=== PATIENT | male | born 1960 | race Caucasian/White ===

== ENCOUNTER → 2021-04-18 08:18 | Outpatient (CLI) | payer OTHER, SELFPAY ==
--- NOTE | ~2021-04-18 | MM_ITS ---
EXAMINATION: MM diagnostic mammo unilat RT HISTORY: Subareolar right breast mass TECHNIQUE: Craniocaudal and mediolateral oblique images of the right breast and mediolateral oblique images of the left breast were obtained using full field digital mammography. COMPARISON: None BREAST PARENCHYMAL COMPOSITION: The breasts are almost entirely fatty. FINDINGS: There is flame-shaped subareolar focal asymmetry of the right breast compared to the left. No discrete mass or suspicious calcification are identified. IMPRESSION: 1. Findings consistent with asymmetric gynecomastia on the right breast. Further evaluation at this t bryanna should be based on clinical assessment. Continued follow-up physical examination is recommended. BI-RADS Category 2: Benign finding(s). Reviewed, dictated and finalized at location A. IMPRESSION: 1. Findings consistent with asymmetric gynecomastia on the right breast. Furthe r evaluation at this time should be based on clinical assessment. Continued fol low-up physical examination is recommended. BI-RADS Category 2: Benign finding(s).
== END ==
PROVIDERS: PCP Family Medicine; Visit Provider Physician Assistant
DX: N63.10 Unspecified lump in the right breast, unspecified quadrant (principal)
CPT/HCPCS: 77065

== ENCOUNTER 2024-09-30 13:05 | Emergency (ER) | payer OTHER, SELFPAY ==
--- NOTE | 2024-09-30 13:07 | ED_ITS ---
HPI - URI/Sore Throat General Chief Complaint: Upper Respiratory Infection Stated Complaint: Vomiting/Sinus Time Seen by Provider: 09/30/24 13:06 Source: patient Mode of arrival: ambulatory Limitations: no limitations History of Present Illness HPI Narrative: Jevon is a 64-year-old male patient presenting to the clinic today with complaints sinus congestion, productive cough, abdominal cramping, nausea, vomiting, and diarrhea times 3-4 days. He reports no known fevers, chills, body aches. Has been taking Tylenol and Robitussin DM for symptoms. Denies any chest pain or shortness of breath. He is former smoker. No blood in his stool. MD elicited complaint: sore throat and nasal congestion Related Data Home Medications ?Medication ?Instructions ?Recorded ?Confirmed ?Last Taken ?Type omeprazole 20 mg capsule,delayed 20 mg PO DAILY 06/10/21 08/14/23 Unknown History release Allergies Allergy/AdvReac Type Severity Reaction Status Date / Time No Known Allergies Allergy Unknown Verified 09/30/24 13:11 Review of Systems Review of Systems: Pertinent positives per HPI. Patient denies any fever, chills, rash, headache, visual changes, dizziness,shortness of breath, chest pain, palpitations, diarrhea, constipation, or any urinary issues. PMFSH Surgical History Surgical History History of colostomy (~2007) Family History Family History Grandparent Diabetes mellitus Mother Diabetes mellitus Family history of lung cancer Family history of elevated blood lipids Father Patient's father is , Onset Age: 35 Social History Social History Social History: Caffeine-1/2 cup coffee Smoking status: Former smoker (quit in september 2010) Alcohol intake: current Alcohol use details: daily Substance use: current Comments At the time of my signature, I reviewed and agree with the nursing past medical, surgical, social, and family history. There is no relevant family history pertinent to the patient complaint. Exam Narrative: General: Well-developed, well nourished, in no apparent distress Head: Normocephalic, atraumatic Eyes: Pupils equally round and reactive to light bilaterally, EOM intact, sclera and conjunctive clear, no discharge, lids normal Ears: TMs intact and clear, ear canals clear, no drainage, grossly hearing normal. Nose: Nares patent, no discharge, no inflammation, no sinus tenderness. Mouth: Oral pharynx without lesions or masses, good dentition, MMM. Neck: Supple, trachea midline, no enlargement of anterior or posterior cervical nodes, no thyroid masses or goiter palpable. Cardio: Regular rate and rhythm, s1 and s2 normal, no murmur appreciated. Resp: Expiratory wheeze in the right upper posterior lobe and the left lower and upper lobe, no rhonchi, rales, or rubs Course Course Emergency Course: Portions of this record may have been created with voice recognition software. Level of Care: Express Care Visit Vital Signs Vital signs: Vital Signs Temperature 36.2 C L 09/30/24 13:15 Pulse Rate 101 H 09/30/24 13:15 Respiratory Rate 16 09/30/24 13:15 Blood Pressure 153/86 H 09/30/24 13:15 Pulse Oximetry 95 09/30/24 13:15 Oxygen Delivery Room Air 09/30/24 13:15 Temperature 36.2 C L 09/30/24 13:15 Pulse Rate 101 H 09/30/24 13:15 Respiratory Rate 16 09/30/24 13:15 Blood Pressure 153/86 H 09/30/24 13:15 Pulse Oximetry 95 09/30/24 13:15 Oxygen Delivery Room Air 09/30/24 13:15 Vital signs reviewed MDM - URI/Sore Throat MDM Narrative Medical decision making narrative: At the time of visit patient is resting comfortably on the exam table. Patient appears to be nontoxic. Labs: COVID and influenza testing was performed. All testing was negative. Plan: I suspect patient has bronchitis with gastroenteritis. Prescription for prednisone, albuterol inhaler, Levsin, and Zofran was sent to the pharmacy. Supportive measures were discussed with the patient and they voiced understanding discharge instructions and agrees to treatment plan. Return precautions reviewed Differential Diagnosis Differential diagnosis: Likely upper respiratory infection, otitis media, sinusitis, viral infection, bronchitis, influenza, pharyngitis and other (COVID) Lab Data Labs: Lab Results 09/30/24 Range/Units 13:19 POC Influenza A Ag Negative (Negative) POC Influenza B Ag Negative (Negative) POC SARS CoV-2 Ag Negative (Negative) Discharge Plan Discharge Clinical Impression: Bronchitis, Gastroenteritis Patient Disposition: Home, Self-Care Condition: Stable Instructions: Antibiotic Form Additional Instructions: Take prescription medications only as prescribed albuterol inhaler, prednisone, Levsin, and Zofran Increase fluids and stay well hydrated Tylenol/motrin for pain/fever Flonase and OTC antihistamines as directed Vicks vapor rub to open sinuses Sinus rinses for congestion Cepacol spray, cough drops, throat lozenges, warm tea with honey/lemon, gargle salt water to soothe throat BRAT diet for diarrhea Clear liquids x 24 hours then advance as tolerated for nausea/vomiting Go to the ED if you develop a worsening in your condition- high fever not controlled by Tylenol or Motrin, dehydration, weakness, lethargy, shortness of breath, or chest pain. Follow up with your PCP in 3-5 days if symptoms persist. Patient Language: Cameroonian Prescriptions: New hyoscyamine sulfate [Levsin] 0.125 mg tablet 0.125 mg PO QID PRN (Reason: dyspepsia) 3 Days Qty: 12 0RF ondansetron 4 mg tablet,disintegrating 4 mg PO Q6H PRN (Reason: nausea and vomiting) 3 Days Qty: 12 0RF prednisone 20 mg tablet 40 mg PO DAILY 5 Days Qty: 10 0RF albuterol sulfate 90 mcg/actuation HFA aerosol inhaler 2 puff inhalation Q4-6H PRN (Reason: shortness of breath or wheezing) 30 Days Qty: 8.5 0RF No Action omeprazole 20 mg capsule,delayed release(DR/EC) 20 mg PO DAILY atorvastatin 40 mg tablet 40 mg PO DAILY Qty: 90 0RF Rx Instructions: Needs appointment for further refills Follow-up/Referrals: Bebeto Elder MD [Primary Care Provider] - Stand Alone Forms: Work/School Release IP Time of Disposition: 13:41 Quality NIHSS Nursing Documentation ED NIHSS nursing documentation: reviewed/agree
[2024-09-30 13:15] VITALS: BP 153/86; PULSE 101; RESP 16; TEMP 36.2; O2SAT 95
[2024-09-30 13:39] LABS: EDCOVIDSCREEN Negative (Negative); EDINFLUASCREEN Negative (Negative); EDINFLUBSCREEN Negative (Negative)
== END 2024-09-30 13:45 | disposition home or self-care (01) ==
PROVIDERS: Emergency Provider Nurse Practitioner Family; PCP Emergency Medicine
DX: J40 Bronchitis, not specified as acute or chronic (principal); K52.9 Noninfective gastroenteritis and colitis, unspecified; Z20.822 Contact with and (suspected) exposure to COVID-19; Z87.891 Personal history of nicotine dependence
CPT/HCPCS: 87426; 87804; 99213; G0463

== ENCOUNTER 2024-12-06 17:38 | Emergency (ER) | payer MEDICARE, OTHER, SELFPAY ==
--- NOTE | ~2024-12-06 | XR_ITS ---
EXAMINATION: XR chest 2V Exam Date/Time: 12/06/2024 18:04 CDT HISTORY: prod cough x 3 weeks past smoker smokes pot Comparison: 05/05/2008. RESULT: Lines, tubes, and devices: Cholecystectomy clips. Lungs and pleura: Clear. Cardiomediastinal silhouette: Stable. Other: No acute osseous or upper abdominal finding. IMPRESSION: No acute cardiopulmonary process. Reviewed, dictated and finalized at location K.
[2024-12-06 17:48] VITALS: BP 179/92; PULSE 89; RESP 16; TEMP 36.9; O2SAT 97
--- NOTE | 2024-12-06 18:02 | ED_ITS ---
HPI - URI/Sore Throat General Chief Complaint: Upper Respiratory Infection Stated Complaint: cough,REICH,chest congestion Time Seen by Provider: 12/06/24 17:55 Source: patient and RN notes reviewed Mode of arrival: ambulatory Limitations: no limitations History of Present Illness HPI Narrative: Patient presents today complaining of a one-month history productive cough, wheezing, nasal congestion, postnasal drip, intermittent headache. Denies fever or shortness of breath. He has tried Mucinex and Carlie D with minimal relief. He did a home COVID test yesterday that was negative. Denies fever. He quit smoking cigarettes many years ago, but does still smoke marijuana. Related Data Allergies Allergy/AdvReac Type Severity Reaction Status Date / Time No Known Allergies Allergy Unknown Verified 12/06/24 17:42 Review of Systems Review of Systems: CONSTITUTIONAL: Denies body aches, fever, chills, or sweats. EYES: Denies visual changes, redness, or discharge. ENT: Denies rhinorrhea, sore throat, or otalgia.+ congestion, postnasal drip CARDIOVASCULAR: Denies chest pain, palpitations, or edema. RESPIRATORY: Denies dyspnea.+ cough, wheezing GASTROINTESTINAL: Denies abdominal pain, nausea, vomiting, or diarrhea. GENITOURINARY: Denies dysuria or hematuria. SKIN: Denies rash, itching, or wounds. MUSCULOSKELETAL: Denies back pain, joint pain, or myalgia. NEUROLOGIC: Denies numbness, tingling, or weakness.+ headache PSYCH: Denies depression or anxiety. [facility] Surgical History Surgical History History of colostomy (~2007) Family History Family History Grandparent Diabetes mellitus Mother Diabetes mellitus Family history of lung cancer Family history of elevated blood lipids Father Patient's father is , Onset Age: 35 Social History Social History Social History: Caffeine-1/2 cup coffee Smoking status: Former smoker (quit in september 2010) Alcohol intake: current Alcohol use details: daily Substance use: current Comments At time of signature, I have reviewed and agree with nursing past medical, surgical, social and family history unless otherwise noted. Please see nursing chart for further information. There is no relevant family history pertinent to the presenting complaint Exam Narrative: GENERAL: Well-appearing, well-nourished, and in no acute distress. HEAD: Normocephalic, atraumatic. EYES: EOMI. No redness or drainage. Conjunctivae normal. ENT: Mucous membranes pink and moist. Nares congested with rhinorrhea. TMs normal bilaterally. Throat normal. Uvula midline. NECK: Normal AROM. Supple. No lymphadenopathy. CHEST: No respiratory distress. Inspiratory and expiratory wheezing noted. Rhonchi noted in the upper and bilateral lower lung zones. HEART: Regular rate and rhythm. No murmur appreciated. EXTREMITIES: Normal range of motion. No edema. SKIN: Warm, dry, no rash. Capillary refill normal. Normal skin turgor. NEURO: No focal deficits. Alert and oriented x3. Gait steady. PSYCH: Normal affect. No signs of depression or anxiety. Course Course Emergency Course: 1844-after DuoNeb patient states he can take a deeper breath. Inspiratory wheezing has resolved. Level of Care: Express Care Visit Vital Signs Vital signs: Vital Signs Temperature 98.4 F 12/06/24 17:48 Pulse Rate 89 12/06/24 17:48 Respiratory Rate 16 12/06/24 17:48 Blood Pressure 179/92 H 12/06/24 17:48 Pulse Oximetry 97 12/06/24 17:48 Oxygen Delivery Room Air 12/06/24 17:48 Temperature 98.4 F 12/06/24 17:48 Pulse Rate 89 12/06/24 17:48 Respiratory Rate 16 12/06/24 17:48 Blood Pressure 179/92 H 12/06/24 17:48 Pulse Oximetry 97 12/06/24 17:48 Oxygen Delivery Room Air 12/06/24 17:48 Reviewed MDM - URI/Sore Throat MDM Narrative Medical decision making narrative: Chest x-ray negative. Patient's bronchitis will be treated with prednisone and an albuterol inhaler. Patient declines prescription for Tessalon Perles. Anticipatory guidance given. Differential Diagnosis Differential diagnosis: Likely upper respiratory infection, bronchitis and other (Pneumonia) Imaging Data Radiologist's impression: ITS Impressions Chest X-Ray 12/06/24 18:45 IMPRESSION: No acute cardiopulmonary process. Critical Care Time Critical Care Time Critical Care Time: No Discharge Plan Discharge Clinical Impression: Bronchitis Patient Disposition: Home, Self-Care Condition: Stable Instructions: Acute Bronchitis (ED) Additional Instructions: Your chest x-ray is negative for pneumonia. Please take the prednisone and use albuterol inhaler as directed. Follow-up with your PCP next week if symptoms are not improving. Go to the ER if symptoms worsen to include development of new fever greater than 100.3, shortness of breath. Your blood pressure was elevated above 120/80 today at Urgent Care. This puts you above the threshold for follow up. Please schedule a followup visit with your personal physician as soon as possible, for further evaluation and tr eatment. Even blood pressure exceeding 120/80 may indicate pre-hypertension. Patient Language: Luxembourgish Prescriptions: New albuterol sulfate 90 mcg/actuation HFA aerosol inhaler 2 inh inhalation Q4-6H PRN (Reason: shortness of breath or wheezing) Qty: 8.5 0RF (DME) [employer] MDI Spacer Spacer See Rx Instructions .ROUTE .MEDSUPPLY Qty: 1 0RF Rx Instructions: As directed prednisone 50 mg tablet 50 mg PO DAILY 5 Days Qty: 5 0RF No Action atorvastatin 40 mg tablet 40 mg PO DAILY Qty: 90 0RF Rx Instructions: Needs appointment for further refills Follow-up/Referrals: Jael,Bebeto Guido MD [Primary Care Provider] - Marla Stratton MD [Physician] - Time of Disposition: 19:01
[2024-12-06] MEDS: IPRATROPIUM BR 0.02% INH SOLN 0.5 MG/2.5 ML VIAL INHALATION (18:09)
[2024-12-06] MEDS: ALBUTEROL SULFATE NEB 2.5 MG/3 ML INH INHALATION (18:10)
== END 2024-12-06 19:08 | disposition home or self-care (01) ==
PROVIDERS: Emergency Provider Nurse Practitioner; PCP Emergency Medicine
DX: J40 Bronchitis, not specified as acute or chronic (principal); Z87.891 Personal history of nicotine dependence
CPT/HCPCS: 71046; 94640; 99213; G0463